=== PATIENT | male | born 1945 | race Caucasian/White ===

== ENCOUNTER 2018-01-25 11:15 | Inpatient (IN) | payer OTHER ==
[~2018-01-25] VITALS: Ht 180.3 cm; Wt 78.0 kg
[2018-01-25] MEDS ORDERED: RESTORIL30 MG PO (13:32)
[2018-01-25] MEDS ORDERED: [UNRECOGNIZED DRUG - OTHER] (13:33)
== END 2018-02-04 17:45 | disposition home or self-care (01) | DRG 331 ==
LOC: SURH 02-01 05:46 → O/R 02-01 05:46 → SURH 02-01 10:52 → SURG 02-01 11:15 → SURH 02-02 15:37
PROVIDERS: Colon & Rectal Surgery
PROC: 07TC4ZZ Resection of Pelvis Lymphatic, Percutaneous Endoscopic Approach (ICD-10-PCS; 2018-02-01)
PROC: 0DJD8ZZ Inspection of Lower Intestinal Tract, Via Natural or Artificial Opening Endoscopic (ICD-10-PCS; 2018-02-01)
PROC: 0DTL4ZZ Resection of Transverse Colon, Percutaneous Endoscopic Approach (ICD-10-PCS; principal; 2018-02-01 23:15)
DX: C18.6 Malignant neoplasm of descending colon (principal)

== ENCOUNTER 2018-01-31 11:00 | Day surgery (SDC) | payer OTHER ==
[~2018-01-31 11:00] MED LIST: RESTORIL30 MG PO; [UNRECOGNIZED DRUG - OTHER]
== END 2018-01-31 14:31 | disposition home or self-care (01) ==
LOC: AMB-ENDOS 11:00
DX: D12.3 Benign neoplasm of transverse colon (principal)